=== PATIENT | female | born 1985 | race American Indian/Alaskan Native ===

== ENCOUNTER 2018-05-14 19:44 | Emergency (ER) | payer SELFPAY ==
[2018-05-14 20:09] VITALS: BP 124/70
--- NOTE | 2018-05-14 20:55 | Emergency Department Report ---
<MARIE ALONSO - Last Filed: 05/14/18 22:00> ED Back Pain/Injury HPI - General Chief Complaint: Back Pain/Injury Stated Complaint: BREAST PAIN AND BACK PAIN Time Seen by Provider: 05/14/18 20:46 Source: patient Limitations: No Limitations - History of Present Illness Initial Comments: This is a 32-year-old female here reports that she is probably because she missed her period and has not had a period since January 2018. She is complaining of bilateral nipple pain and denies any redness, swelling or drainage from nipple. She denies any fever or chills. She is also complaining that she is having lower back pain. Denies any abdominal pain, vaginal bleeding or discharge. Patient also states that she had went to a clinic and they did not do a test for her because this she was not on Medicaid and she cannot get Medicaid unless she can prove that she is . Denies any nausea or vomiting. Denies any urinary symptoms. She said this started last night. She is here to be examined. MD Complaint: back pain, other (bilateral breast pain and concern for ) -: Last night Similar Symptoms Previously: No Place: home Radiation: none Severity: moderate Severity scale (0 -10): 7 Quality: aching Consistency: intermittent Improves With: none Worsens With: none Context: unknown Associated Symptoms: denies: confusion, weakness, chest pain, numbness, difficulty walking, cough, difficulty urinating, diaphoresis, incontinence, fever/chills, constipation, headaches, abdominal pain, loss of appetite, malaise , nausea/vomiting, rash, seizure, shortness of breath, syncope Treatments Prior to Arrival: other (none) - Related Data Previous Rx's Medication Instructions Recorded Last Taken Type Nitrofurantoin [place]/M-Cryst 100 mg PO Q12HR 7 Days #14 capsule 05/14/18 Unknown Rx [Macrobid CAP] Vit Calc,Iron,Folic 1 each PO QAM 30 Days #30 tablet 05/14/18 Unknown Rx [ Vitamins] Allergies Allergy/AdvReac Type Severity Reaction Status Date / Time No Known Allergies Allergy Unverified 05/14/18 19:59 ED Review of Systems ROS: Stated complaint: BREAST PAIN AND BACK PAIN Other details as noted in HPI Constitutional: denies: chills, fever Eyes: denies: eye pain, eye discharge ENT: denies: ear pain, throat pain, congestion Respiratory: denies: cough, shortness of breath, SOB with exertion, SOB at rest , stridor, wheezing Cardiovascular: denies: chest pain, palpitations, edema, syncope, paroxysmal nocturnal dyspnea Gastrointestinal: denies: abdominal pain, nausea, vomiting, diarrhea, constipation, hematemesis, hematochezia Genitourinary: abnormal menses. denies: urgency, dysuria, frequency, hematuria , discharge Musculoskeletal: back pain. denies: joint swelling, arthralgia, myalgia Skin: denies: rash, lesions Neurological: denies: headache, weakness, numbness, paresthesias, abnormal gait , vertigo ED Past Medical Hx - Past Medical History Previous Medical History?: No - Surgical History Past Surgical History?: No - Family History Family history: no significant - Social History Smoking Status: Former Smoker Substance Use Type: None, Marijuana - Medications Home Medications: Home Medications Medication Instructions Recorded Confirmed Last Taken Type Nitrofurantoin [place]/M-Cryst 100 mg PO Q12HR 7 Days #14 capsule 05/14/18 Unknown Rx [Macrobid CAP] Vit Calc,Iron,Folic 1 each PO QAM 30 Days #30 tablet 05/14/18 Unknown Rx [ Vitamins] ED Physical Exam - General Limitations: No Limitations General appearance: alert, in no apparent distress - Head Head exam: Present: atraumatic, normocephalic, normal inspection - Eye Eye exam: Present: normal appearance, PERRL, EOMI. Absent: nystagmus Pupils: Present: normal accommodation - ENT ENT exam: Present: normal exam, normal orophraynx, mucous membranes moist - Neck Neck exam: Present: normal inspection, full ROM, other (no C-spine tenderness). Absent: tenderness, lymphadenopathy - Respiratory Respiratory exam: Present: normal lung sounds bilaterally. Absent: respiratory distress, chest wall tenderness - Cardiovascular Cardiovascular Exam: Present: regular rate, normal rhythm, normal heart sounds. Absent: systolic murmur, diastolic murmur - GI/Abdominal GI/Abdominal exam: Present: soft, normal bowel sounds. Absent: distended, tenderness, guarding, rebound, rigid, organomegaly, mass, bruit, pulsatile mass , hernia - Extremities Exam Extremities exam: Present: normal inspection, full ROM, normal capillary refill , other (no clubbing, cyanosis or edema.+2 pulses to all extremities and no neurovascular compromise.). Absent: tenderness, pedal edema, joint swelling, calf tenderness - Back Exam Back exam: Present: normal inspection - Neurological Exam Neurological exam: Present: alert, oriented X3, normal gait, reflexes normal. Absent: motor sensory deficit - Expanded Neurological Exam Expanded Neurological exam: Absent: innattentive, memory loss-remote event, memory loss- recent event, ataxia, receptive aphasia, expressive aphasia, total aphasia, tremor, protecting the airway Patient oriented to: Present: person, place, time Speech: Present: fluid speech Cranial nerves: EOM's Intact: Normal, Gag Reflex: Normal, Tongue Deviation: Normal, Nystagmus: Normal, Facial Sensation: Normal Cerebellar function: Romberg: Normal Upper motor neuron: Pronator Drift: Normal, Sensory Extinction: Normal Sensory exam: Upper Extremity Light Touch: Normal, Upper Extremity Pin Prick: Normal, Upper Extremity Temperature: Normal, UE 2 Point Discrimination: Normal, Lower Extremity Light Touch: Normal, Lower Extremity Pin Prick: Normal, Lower Extremity Temperature: Normal, LE 2 Point Discrimination: Normal Motor strength exam: RUE: 5, LUE: 5, RLE: 5, LLE: 5 Best Eye Response (Kayla): (4) open spontaneously Best Motor Response ([place]): (6) obeys commands Best Verbal Response (Kayla): (5) oriented Kayla Total: 15 - Psychiatric Psychiatric exam: Present: normal affect, normal mood - Skin Skin exam: Present: warm, dry, intact, normal color. Absent: rash ED Course Vital Signs 05/14/18 19:59 Temperature 99 F Pulse Rate 90 Respiratory 20 Rate Blood Pressure 124/70 O2 Sat by Pulse 100 Oximetry - Reevaluation(s) Reevaluation #1: 05/14/18 22:13 Patient is stable. No distress and emergency. She is given Rocephin 1 g IM for urinary tract infection without any adverse reaction. ED Medical Decision Making - Lab Data Lab Results 05/14/18 05/14/18 Range/Units 20:58 21:09 HCG, Qual Positive (Negative) Urine Color Yellow (Yellow) Urine Turbidity Clear (Clear) Urine pH 6.0 (5.0-7.0) Ur Specific [place] 1.025 (1.003-1.030) Urine Protein 30 mg/dl (Negative) mg/dL Urine Glucose (UA) Neg (Negative) mg/dL Urine Ketones Neg (Negative) mg/dL Urine Blood Neg (Negative) Urine Nitrite Pos (Negative) Urine Bilirubin Neg (Negative) Urine Urobilinogen < 2.0 (<2.0) mg/dL Ur Leukocyte Esterase Mod (Negative) Urine WBC (Auto) 30.0 H (0.0-6.0) /HPF Urine RBC (Auto) 9.0 (0.0-6.0) /HPF U Epithel Cells (Auto) 10.0 (0-13.0) /HPF Urine Bacteria (Auto) 4+ (Negative) /HPF Urine Mucus 2+ /HPF Urine culture sent and pending - Medical Decision Making 32-year-old female here concern for because she has had her menstrual cycle since January 2018. She is complaining of lower back pain and bilateral breast pain. Patient is here to be examined. She doesn't have [facility] because she says she needs to activate her Medicaid so she can see [facility] doctor. Patient was screened and examined by myself. Her physical findings are normal without any vertebral tenderness, paraspinal tenderness. Abdominal exam is normal without any tenderness to palpation or CVA tenderness. Breast exam is normal without any erythema, induration, no nipple discharge or skin abnormality. Bilateral breast nontender to palpate and normal examination. Qualitative hCG serum positive and urinalysis with positive nitrite, positive leukocyte esterase, positive white blood cell and positive for plus bacteria. Urine culture sent. I discussed with patient her results and also urinalysis results. She is given Rocephin 1 g IM without any adverse reaction and will be started on Macrobid and vitamin. I discussed that she needs to follow-up with [facility] to call tomorrow to schedule an appointment and she voiced understanding. No need for pelvic exam or ultrasound patient does not have any abdominal pain, no vaginal bleeding or discharge and she is not concerned for STD. No concern for ectopic at present. A/P 1: Positive serum hCG-patient to follow up with [facility] and will be started on vitamin. 2: Bilateral breast pain-breast exam is normal 3: Lower back pain, bilateral-no pain at present. 4: Acute cystitis without hematuria-urine culture sent. Patient given Rocephin 1 g IM in emergency room and will be sent home and Macrobid. Patient educated on , medication, treatment plan, diagnosis, laboratory findings a urinalysis. She voiced understanding. Referral to [facility] I discuss with patient that if she has any vaginal bleeding, abdominal pain or cramping, fever and/or chills and increasing back pain to return to the emergency room [facility] otherwise follow-up with [facility] to call tomorrow to schedule an appointment and she voiced understanding. Patient discharged home in stable condition. Vital signs are stable and she is afebrile. She is nontoxic in appearance and she is not having any pain at present. Discharged home with prescription for Macrobid and vitamin. - Differential Diagnosis , lumbar strain, urinary tract infection, abnormal menstrual cycle Critical care attestation.: If time is entered above; I have spent that time in minutes in the direct care of this critically ill patient, excluding procedure time. ED Disposition Disposition: DC-01 TO HOME OR SELFCARE Is pt being admited?: No Does the pt Need Aspirin: No Condition: Stable Instructions: Vitamins (By mouth), Nitrofurantoin Combination (By mouth), (ED), Urinary Tract Infection in Women (ED), Acute Low Back Pain (ED) Additional Instructions: Follow-up with [facility] as discussed. See referral in discharge instruction paperwork I discuss with patient that if she has any vaginal bleeding, abdominal pain or cramping, fever and/or chills and increasing back pain to return to the emergency room [facility] otherwise follow-up with [facility] to call tomorrow to schedule an appointment and she voiced understanding. Take Macrobid for urinary tract infection Take vitamins for Increasing her fluid intake Prescriptions: Nitrofurantoin [place]/M-Cryst [Macrobid CAP] 100 mg PO Q12HR 7 Days #14 capsule Vit Calc,Iron,Folic [ Vitamins] 1 each PO QAM 30 Days #30 tablet Referrals: SANIA LAMAS [Staff Physician] - 05/18/18 [facility] [Outside] - 05/18/18 Forms: Work/School Release Form(ED) <NIECY العراقي - Last Filed: 05/15/18 00:33> ED Medical Decision Making - Medical Decision Making Patient was seen and evaluated by midlevel. I was available for consultation for the patients entire ED visit. I did not see or examine the patient. I agree with the plan as written above. I am signing this chart administratively.
[2018-05-14 21:18] LABS: Bacteria,Urine 4+ /HPF (Negative); Bilirubin,Urine NEG (Negative); Blood,Urine NEG (Negative); Color,Urine Yellow (Yellow); Mucus,Urine 2+ /HPF; Urobilinogen,Urine < 2.0 mg/dL (<2.0)
[2018-05-14] MEDS ORDERED: ROCEPHIN IM STA (21:59)
[2018-05-14] MEDS ORDERED: XYLOCAINE 1% MPF 5 mL INFILTRATI ONE (21:59)
== END 2018-05-14 22:36 | disposition home or self-care (01) ==
LOC: ED 19:44
DX: S39.012A Strain of muscle, fascia and tendon of lower back, initial encounter (principal); O23.41 Unspecified infection of urinary tract in pregnancy, first trimester; O20.8 Other hemorrhage in early pregnancy; F12.10 Cannabis abuse, uncomplicated; Z3A.00 Weeks of gestation of pregnancy not specified; Z87.891 Personal history of nicotine dependence; X58.XXXA Exposure to other specified factors, initial encounter; Y93.89 Activity, other specified; Y99.8 Other external cause status; Y92.89 Other specified places as the place of occurrence of the external cause
CPT/HCPCS: 36415; 81001; 84703; 87076; 87086; 87186; 96372; 99283; J0696

== ENCOUNTER 2019-05-04 19:06 | Emergency (ER) | payer MEDICAID ==
--- NOTE | 2019-05-04 19:16 | Emergency Department Report ---
Blank Doc - Documentation Documentation: This is a 33-year-old female that presents with right ankle pain s/p fall. De nies any other injuries or pain. This initial assessment/diagnostic orders/clinical plan/treatment(s) is/are subject to change based on patient's health status, clinical progression and re-assessment by fellow clinical providers in the ED. Further treatment and workup at subsequent clinical providers discretion. Patient/guardians urged not to elope from the ED as their condition may be serious if not clinically assessed and managed. Initial orders include: 1- Patient sent to [facility] for further evaluation and treatment 2- xray
[2019-05-04 19:17] VITALS: BP 137/92
--- NOTE | 2019-05-04 19:44 | XRay Report ---
RIGHT ANKLE 3 VIEWS INDICATION / CLINICAL INFORMATION: Fell down stairs today with right ankle pain. COMPARISON: None available. FINDINGS: BONES / JOINT(S): No acute fracture or subluxation. There is a small spur at the insertion of the Ach illes tendon on the calcaneus. SOFT TISSUES: There is mild diffuse soft tissue swelling/soft tissue prominence, more prominent later ally. ADDITIONAL FINDINGS: None. IMPRESSION: No acute osseous abnormality is identified. Signer Name: Luke Meek MD Signed: 05/04/2019 6:40 PM Workstation Name: [id number]
[2019-05-04] MEDS ORDERED: IBUPROFEN PO ONE (20:46)
[2019-05-04] MEDS ORDERED: TYLENOL PO ONE (20:46)
--- NOTE | 2019-05-04 21:53 | Emergency Department Report ---
ED General Adult HPI - General Chief complaint: Extremity Injury, Lower Stated complaint: RIGHT ANKLE INJURY Time Seen by Provider: 05/04/19 19:16 Source: patient Mode of arrival: Wheelchair Limitations: No Limitations - History of Present Illness Initial comments: Patient is a 33-year-old -Citizen Of The [place] female with no past medical history who presents to the ED with complaint of acute onset severely painful and swollen right ankle after she twisted her ankle and fell down the stairs after missing steps on her way down the stairs 4 hours ago. Patient states that she was distracted by her friend when climbing down the stairs, and ended up missing steps and falling down after twisting her right ankle. The patient denies head or neck injury, back pain, hip pain, knee pain, chest pain, dizziness, syncope, seizures, loss of consciousness, numbness and tingling or weakness of the right leg. MD Complaint: right ankle pain and swelling -: Sudden, hour(s) (4), This evening Location: lower extremity (right ankle) Radiation: non-radiation Severity scale (0 -10): 10 Quality: aching, sharp Consistency: constant Improves with: rest Worsens with: movement Associated Symptoms: denies other symptoms. denies: confusion, cough, diaphoresis, fever/chills, headaches, loss of appetite, malaise, nausea /vomiting, shortness of breath, syncope, weakness Treatments Prior to Arrival: none - Related Data Previous Rx's Medication Instructions Recorded Last Taken Type Nitrofurantoin [place]/M-Cryst 100 mg PO Q12HR 7 Days #14 capsule 05/14/18 Unknown Rx [Macrobid CAP] Vit Calc,Iron,Folic 1 each PO QAM 30 Days #30 tablet 05/14/18 Unknown Rx [ Vitamins] Acetaminophen/Codeine [Tylenol 1 tab PO Q6H PRN #12 tab 05/04/19 Unknown Rx /Codeine # 3 tab] Cyclobenzaprine [Flexeril] 10 mg PO TID PRN #21 tablet 05/04/19 Unknown Rx Ibuprofen [Motrin] 800 mg PO Q8HR PRN #24 tablet 05/04/19 Unknown Rx Allergies Allergy/AdvReac Type Severity Reaction Status Date / Time No Known Allergies Allergy Verified 05/04/19 19:14 ED Review of Systems ROS: Stated complaint: RIGHT ANKLE INJURY Other details as noted in HPI Comment: All other systems reviewed and negative Constitutional: denies: chills, fever Eyes: denies: eye pain, eye discharge, vision change ENT: denies: ear pain, throat pain Respiratory: denies: cough, shortness of breath, wheezing Cardiovascular: denies: chest pain, palpitations Endocrine: no symptoms reported Gastrointestinal: denies: abdominal pain, nausea, diarrhea Genitourinary: denies: urgency, dysuria, discharge Musculoskeletal: joint swelling (right ankle), arthralgia, other (right ankle pain and swelling). denies: back pain Skin: denies: rash, lesions Neurological: denies: headache, weakness, paresthesias Psychiatric: denies: anxiety, depression Hematological/Lymphatic: denies: easy bleeding, easy bruising ED Past Medical Hx - Past Medical History Previous Medical History?: Yes Additional medical history: HTN during - Surgical History Past Surgical History?: No - Social History Smoking Status: Never Smoker Substance Use Type: None - Medications Home Medications: Home Medications Medication Instructions Recorded Confirmed Last Taken Type Nitrofurantoin [place]/M-Cryst 100 mg PO Q12HR 7 Days #14 capsule 05/14/18 Unknown Rx [Macrobid CAP] Vit Calc,Iron,Folic 1 each PO QAM 30 Days #30 tablet 05/14/18 Unknown Rx [ Vitamins] Acetaminophen/Codeine [Tylenol 1 tab PO Q6H PRN #12 tab 05/04/19 Unknown Rx /Codeine # 3 tab] Cyclobenzaprine [Flexeril] 10 mg PO TID PRN #21 tablet 05/04/19 Unknown Rx Ibuprofen [Motrin] 800 mg PO Q8HR PRN #24 tablet 05/04/19 Unknown Rx ED Physical Exam - General Limitations: No Limitations General appearance: alert, in no apparent distress - Head Head exam: Present: atraumatic, normocephalic, normal inspection - Eye Eye exam: Present: normal appearance, PERRL, EOMI Pupils: Present: normal accommodation - ENT ENT exam: Present: normal exam, normal orophraynx, mucous membranes moist, TM's normal bilaterally, normal external ear exam - Neck Neck exam: Present: normal inspection, full ROM. Absent: tenderness - Respiratory Respiratory exam: Present: normal lung sounds bilaterally. Absent: respiratory distress, wheezes, chest wall tenderness, accessory muscle use, decreased breath sounds, prolonged expiratory - Cardiovascular Cardiovascular Exam: Present: regular rate, normal rhythm, normal heart sounds. Absent: systolic murmur, diastolic murmur, rubs, gallop - GI/Abdominal GI/Abdominal exam: Present: soft, normal bowel sounds. Absent: tenderness, guarding, rebound, hyperactive bowel sounds, hypoactive bowel sounds, organomegaly - Rectal Rectal exam: Present: deferred - Extremities Exam Extremities exam: Present: normal inspection, tenderness (palpable right ankle tenderness with this limited range of motion due to pain), normal capillary refill, joint swelling (right ankle). Absent: full ROM (due to pain) - Back Exam Back exam: Present: normal inspection, full ROM. Absent: tenderness, CVA tenderness (R), CVA tenderness (L), muscle spasm, paraspinal tenderness, vertebral tenderness - Neurological Exam Neurological exam: Present: alert, oriented X3, CN II-XII intact, normal gait, reflexes normal - Psychiatric Psychiatric exam: Present: normal affect, normal mood - Skin Skin exam: Present: warm, dry, intact, normal color. Absent: rash ED Course Vital Signs 05/04/19 05/04/19 19:16 20:51 Temperature 98 F Pulse Rate 85 Respiratory 18 18 Rate Blood Pressure 137/92 O2 Sat by Pulse 99 Oximetry - Reevaluation(s) Reevaluation #1: 05/04/19 21:56 Patient is alert and oriented 3 and is not in distress with normal vital signs. Patient was treated for pain in the ED and right ankle x-ray shows no acute fractures or subluxation but a soft tissue swelling on the lateral right ankle. The patient's right ankle was splinted with Joo wrap and patient given crutches to dining room helper in ambulation. Patient was discharged home on pain medications and muscle relaxants and advised to follow up with her primary care physician in 5- 7 days for reevaluation or return to the ED immediately if symptoms get worse. ED Medical Decision Making - Radiology Data Radiology results: report reviewed, image reviewed Right ankle x-ray shows no acute fractures or subluxations, but a soft tissues swelling prominent on lateral right ankle - Medical Decision Making Patient is alert and oriented 3 and is not in distress with normal vital signs. Patient was treated for pain in the ED and right ankle x-ray shows no acute fractures or subluxation but a soft tissue swelling on the lateral right ankle. The patient's right ankle was splinted with Joo wrap and patient given crutches to dining room helper in ambulation. Patient was discharged home on pain medications and muscle relaxants and advised to follow up with her primary care physician in 5- 7 days for reevaluation or return to the ED immediately if symptoms get worse. - Differential Diagnosis right ankle fracture; right ankle sprain, right ankle dislocation Critical care attestation.: If time is entered above; I have spent that time in minutes in the direct care of this critically ill patient, excluding procedure time. ED Disposition Clinical Impression: Severe sprain of right ankle Qualifiers: Encounter type: initial encounter Qualified Code(s): S93.401A - Sprain of unspecified ligament of right ankle, initial encounter Muscle strain of right ankle Qualifiers: Encounter type: initial encounter Qualified Code(s): S96.911A - Strain of unspecified muscle and tendon at ankle and foot level, right foot, initial encounter Disposition: TO HOME OR SELFCARE Is pt being admited?: No Does the pt Need Aspirin: No Condition: Stable Instructions: Muscle Strain (ED), Ankle Sprain (ED) Additional Instructions: Take medications with food, drink plenty of fluids and follow up with your primary care physician in 5-7 days for reevaluation. Return to the ED immediately if symptoms get worse. Prescriptions: Cyclobenzaprine [Flexeril] 10 mg PO TID PRN #21 tablet PRN Reason: Muscle Spasm Ibuprofen [Motrin] 800 mg PO Q8HR PRN #24 tablet PRN Reason: Pain , Severe (7-10) Acetaminophen/Codeine [Tylenol /Codeine # 3 tab] 1 tab PO Q6H PRN #12 tab PRN Reason: Pain , Severe (7-10) Referrals: [facility] [Outside] - 3-5 Days Forms: Work/School Release Form(ED) Time of Disposition: 21:51 Print Language: MONEGASQUE
== END 2019-05-04 22:26 | disposition home or self-care (01) ==
LOC: ED 19:06
DX: S96.911A Strain of unspecified muscle and tendon at ankle and foot level, right foot, initial encounter (principal); Z79.899 Other long term (current) drug therapy; W10.9XXA Fall (on) (from) unspecified stairs and steps, initial encounter; Y93.89 Activity, other specified; Y92.488 Other paved roadways as the place of occurrence of the external cause; Y99.8 Other external cause status
CPT/HCPCS: 99284

== ENCOUNTER 2021-08-07 20:44 | Emergency (ER) | payer MEDICAID ==
[2021-08-07] MEDS ORDERED: MORPHINE 4 MG/1 ML INJ IV ONE (22:40)
[2021-08-07] MEDS ORDERED: FAMOTIDINE 20 MG/2 ML INJ IV ONE (22:40)
[2021-08-07 23:23] LABS: Basophils # (Auto) 0.1 K/mm3 (0.0-0.1); Basophils % (Auto) 0.6 % (0.0-1.8); Eosinophils % (Auto) 0.2 % (0.0-4.3); Hematocrit 32.2 % (30.3-42.9); Hemoglobin 10.4 gm/dl (10.1-14.3); Lymphocytes # (Auto) 1.7 K/mm3 (1.2-5.4); Lymphocytes % (Auto) 19.9 % (13.4-35.0); Mean Corpuscular HGB Conc 32 % (30-34); Mean Corpuscular Volume 80 fl (79-97); Monocytes # (Auto) 0.4 K/mm3 (0.0-0.8); Monocytes % (Auto) 4.7 % (0.0-7.3); Platelet Count 344 K/mm3 (140-440); Red Blood Count 4.01 M/mm3 (3.65-5.03); Red Cell Distribution Width 16.2 % (13.2-15.2)
[2021-08-07 23:32] LABS: Bilirubin,Urine NEG (Negative); Blood,Urine NEG (Negative); Color,Urine Yellow (Yellow); Mucus,Urine 1+ /HPF
[2021-08-07 23:35] LABS: Alanine Aminotransferase 435 units/L (7-56); Albumin 4.3 g/dL (3.9-5); BUN/Creatinine Ratio 18; Blood Urea Nitrogen 14 mg/dL (7-17); Calcium 9.5 mg/dL (8.4-10.2); Hemolysis Index 3
--- NOTE | 2021-08-08 00:12 | Emergency Department Report ---
ED Abdominal Pain HPI - General Chief Complaint: Abdominal Pain Stated Complaint: ABDOMINAL PAIN Source: patient Mode of arrival: Ambulatory Limitations: No Limitations - History of Present Illness Initial Comments: Patient is a A0 36-year-old -[place] female with no past medical history presents to the ED with complaint of acute onset persistent severe right upper quadrant pain for the last 2 days, worse in the last 8 hours. Patient states that she has not been able to eat anything because of worsening pain in the right upper quadrant. Patient denies fever, chills, nausea, vomiting, chest pain or shortness of breath, dizziness, syncope, dysuria, urinary frequency and urgency, cough, sore throat, hematuria, hematemesis, vaginal bleeding or vaginal discharge, traumatic injury or hemoptysis, fever and chills. MD Complaint: abdominal pain (Right upper quadrant pain) -: Sudden, days(s) (2) Location: RUQ, epigastric Radiation: none Migration to: no migration Severity: severe Severity scale (0 -10): 8 Quality: aching, sharp Consistency: constant Improves With: nothing Worsens With: eating, movement Associated Symptoms: denies other symptoms, anorexia. denies: nausea, vomiting, diarrhea, fever, chills, constipation, dysuria, hematemesis, hematochezia, melena, hematuria, syncope - Related Data LMP Date: 07/30/21 Previous Rx's Medication Instructions Recorded Last Taken Type Nitrofurantoin [place]/M-Cryst 100 mg PO Q12HR 7 Days #14 capsule 05/14/18 Unknown Rx [Macrobid CAP] Vit Calc,Iron,Folic 1 each PO QAM 30 Days #30 tablet 05/14/18 Unknown Rx [ Vitamins] Acetaminophen/Codeine [Tylenol 1 tab PO Q6H PRN #12 tab 05/04/19 Unknown Rx /Codeine # 3 tab] Cyclobenzaprine [Flexeril] 10 mg PO TID PRN #21 tablet 05/04/19 Unknown Rx Ibuprofen [Motrin] 800 mg PO Q8HR PRN #24 tablet 05/04/19 Unknown Rx Dicyclomine [Bentyl] 20 mg PO Q6H PRN #30 tablet 08/08/21 Unknown Rx Famotidine [Pepcid] 20 mg PO BID #60 tablet 08/08/21 Unknown Rx Ondansetron [Zofran Odt] 4 mg PO Q6HR PRN #15 tab.rapdis 08/08/21 Unknown Rx traMADoL [Ultram] 50 mg PO Q6HR PRN #12 tablet 08/08/21 Unknown Rx Allergies Allergy/AdvReac Type Severity Reaction Status Date / Time No Known Allergies Allergy Verified 05/04/19 19:14 ED Review of Systems ROS: Stated complaint: ABDOMINAL PAIN Other details as noted in HPI Constitutional: denies: chills, fever Eyes: denies: eye pain, eye discharge, vision change ENT: denies: ear pain, throat pain Respiratory: denies: cough, shortness of breath, wheezing Cardiovascular: denies: chest pain, palpitations Endocrine: no symptoms reported Gastrointestinal: abdominal pain (Right upper quadrant pain). denies: nausea, vomiting, diarrhea Genitourinary: denies: urgency, dysuria, discharge Musculoskeletal: denies: back pain, joint swelling, arthralgia Skin: denies: rash, lesions Neurological: denies: headache, weakness, paresthesias Psychiatric: denies: anxiety, depression Hematological/Lymphatic: denies: easy bleeding, easy bruising ED Past Medical Hx - Past Medical History Previous Medical History?: Yes Additional medical history: HTN during . TL - Surgical History Past Surgical History?: Yes Additional Surgical History: TL - Social History Smoking Status: Never Smoker Substance Use Type: None - Medications Home Medications: Home Medications Medication Instructions Recorded Confirmed Last Taken Type Nitrofurantoin [place]/M-Cryst 100 mg PO Q12HR 7 Days #14 capsule 05/14/18 Unknown Rx [Macrobid CAP] Vit Calc,Iron,Folic 1 each PO QAM 30 Days #30 tablet 05/14/18 Unknown Rx [ Vitamins] Acetaminophen/Codeine [Tylenol 1 tab PO Q6H PRN #12 tab 05/04/19 Unknown Rx /Codeine # 3 tab] Cyclobenzaprine [Flexeril] 10 mg PO TID PRN #21 tablet 05/04/19 Unknown Rx Ibuprofen [Motrin] 800 mg PO Q8HR PRN #24 tablet 05/04/19 Unknown Rx Dicyclomine [Bentyl] 20 mg PO Q6H PRN #30 tablet 08/08/21 Unknown Rx Famotidine [Pepcid] 20 mg PO BID #60 tablet 08/08/21 Unknown Rx Ondansetron [Zofran Odt] 4 mg PO Q6HR PRN #15 tab.rapdis 08/08/21 Unknown Rx traMADoL [Ultram] 50 mg PO Q6HR PRN #12 tablet 08/08/21 Unknown Rx ED Physical Exam - General Limitations: No Limitations General appearance: alert, in no apparent distress - Head Head exam: Present: atraumatic, normocephalic, normal inspection - Eye Eye exam: Present: normal appearance, PERRL, EOMI Pupils: Present: normal accommodation - ENT ENT exam: Present: normal exam, normal orophraynx, mucous membranes moist, TM's normal bilaterally, normal external ear exam - Neck Neck exam: Present: normal inspection, full ROM - Respiratory Respiratory exam: Present: normal lung sounds bilaterally. Absent: respiratory distress, wheezes, rales, rhonchi, stridor, chest wall tenderness, accessory muscle use, decreased breath sounds, prolonged expiratory, other - Cardiovascular Cardiovascular Exam: Present: regular rate, normal rhythm, normal heart sounds. Absent: systolic murmur, diastolic murmur, rubs, gallop - GI/Abdominal GI/Abdominal exam: Present: soft, tenderness (Palpable right upper quadrant tenderness with a positive Mcginnis sign), normal bowel sounds. Absent: guarding, rebound, hyperactive bowel sounds, hypoactive bowel sounds, mass - Extremities Exam Extremities exam: Present: normal inspection, full ROM, normal capillary refill - Back Exam Back exam: Present: normal inspection, full ROM. Absent: tenderness, CVA tenderness (R), CVA tenderness (L), muscle spasm, paraspinal tenderness, vertebral tenderness - Neurological Exam Neurological exam: Present: alert, oriented X3, CN II-XII intact, normal gait, reflexes normal - Psychiatric Psychiatric exam: Present: normal affect, normal mood - Skin Skin exam: Present: warm, dry, intact, normal color. Absent: rash ED Course Vital Signs 08/07/21 21:31 Temperature 98.5 F Pulse Rate 68 Respiratory 18 Rate Blood Pressure 151/81 O2 Sat by Pulse 99 Oximetry ED Medical Decision Making - Lab Data Result diagrams: 08/07/21 23:00 08/07/21 23:00 - Radiology Data Radiology results: report reviewed, image reviewed [facility] [address] [place] [address] Ultrasound Report Signed Patient: ELIJAH SELBY MR#: [id number] : 1985 Acct:[id number] Age/Sex: 36 / F ADM Date: 08/07/21 Loc: ED Attending Dr: Ordering Physician: HERMILA CARNEY Date of Service: 08/07/21 Procedure(s): US abdomen limited Accession Number(s): [id number] cc: HERMILA CARNEY ULTRASOUND ABDOMEN, LIMITED (RIGHT UPPER QUADRANT) INDICATION: Right upper quadrant abdominal Pain. COMPARISON: None available. FINDINGS: Pancreas: Not well visualized from overlying bowel gas. Liver: Normal. Gallbladder: The gallbladder appears packed with shadowing gallstones.. No discrete gallbladder wall thickening identified Bile ducts: Normal. Common Bile Duct measures 4 mm. Free fluid: None. Additional Findings: None. IMPRESSION: Severe cholelithiasis, as above. Signer Name: Sarbjit Gonzalez MD Signed: 08/08/2021 12:37 AM Workstation Name: [id number] Transcribed By: BC Dictated By: Sarbjit Gonzalez MD Electronically Authenticated By: Sarbjit oGnzalez MD Signed Date/Time: 08/08/2136 DD/ TD/TT: - Medical Decision Making This is a A0 36-year-old -[place] female with no past medical history presents to the ED with complaint of acute onset persistent severe right upper quadrant pain for the last 2 days, worse in the last 8 hours. Patient states that she has not been able to eat anything because of worsening pain in t he right upper quadrant. In the ED, patient is alert and oriented x3 and is not in any distress. Patient however appears to be in pain. Patient was treated for pain in the ED and also given antiemetics as well as antacids. Patient was also given normal saline 1 L IV bolus x1. Gallbladder ultrasound showed the gallbladder which appears packed with shadowing gallstones.. No discrete gallbladder wall thickening identified, the bile ducts are normal. Common Bile Duct measures 4 mm. Lab test results were reviewed and are all nonactionable except for AST of 758 and ALT of 435, and alk phos of 233. The rest the lab test results are nonactionable including urinalysis. On reevaluation, patient's pain is well controlled medication. Patient will discharge home on pain medications and antacids, and was given a referral to the general surgeon on- call Dr. rBanch for follow-up. Patient was advised to contact Dr. Branch's office first thing in the morning Wednesday September 08, 2021 to schedule a follow-up appointment. Patient was advised return to the ED immediately if symptoms get worse. - Differential Diagnosis Cholelithiasis; cholecystitis; GERD; gastritis; gastroenteritis; UTI Critical care attestation.: If time is entered above; I have spent that time in minutes in the direct care of this critically ill patient, excluding procedure time. ED Disposition Clinical Impression: Acute abdominal pain in right upper quadrant, Cholelithiasis without cholecystitis Disposition: HOME / SELF CARE / HOMELESS Is pt being admited?: No Does the pt Need Aspirin: No Condition: Stable Instructions: Abdominal Pain (ED), Cholelithiasis, [id number], Abdominal Pain , Adult, [id number], Gallbladder Eating Plan Additional Instructions: All lab test results were reviewed and are all nonactionable except for liver enzymes that are elevated secondary to gallstones in your gallbladder. Therefore take medications as needed for pain, drink plenty of fluids, take the antacids to minimize your pain. Follow-up with the general surgeon on-call Dr. Branch in 2 to 3 days for reevaluation. Contact Dr. Branch's office first thing this morning 2020 to schedule a follow-up appointment for further evaluation. Return to the ED immediately if symptoms get worse. Prescriptions: Dicyclomine [Bentyl] 20 mg PO Q6H PRN #30 tablet PRN Reason: Abdominal pain Famotidine [Pepcid] 20 mg PO BID #60 tablet traMADoL [Ultram] 50 mg PO Q6HR PRN #12 tablet PRN Reason: Pain Ondansetron [Zofran Odt] 4 mg PO Q6HR PRN #15 tab.rapdis PRN Reason: Nausea Referrals: JEREMIE BRANCH MD [Staff Physician] - 2-3 Days Forms: Work/School Release Form(ED) Time of Disposition: 01:15 Print Language: BHUTANESE
--- NOTE | 2021-08-08 00:41 | Ultrasound Report ---
ULTRASOUND ABDOMEN, LIMITED (RIGHT UPPER QUADRANT) INDICATION: Right upper quadrant abdominal Pain. COMPARISON: None available. FINDINGS: Pancreas: Not well visualized from overlying bowel gas. Liver: Normal. Gallbladder: The gallbladder appears packed with shadowing gallstones.. No discrete gallbladder wall thickening identified Bile ducts: Normal. Common Bile Duct measures 4 mm. Free fluid: None. Additional Findings: None. IMPRESSION: Severe cholelithiasis, as above. Signer Name: Sarbjit Gonzalez MD Signed: 08/08/2021 12:37 AM Workstation Name: [id number]
[2021-08-08 02:17] VITALS: BP 169/93
== END 2021-08-08 02:17 | disposition home or self-care (01) ==
LOC: ED 20:44
DX: K80.20 Calculus of gallbladder without cholecystitis without obstruction (principal); Z98.890 Other specified postprocedural states
CPT/HCPCS: 36415; 76705; 80053; 81001; 83690; 84703; 85025; 96374; 96375; 99284; J2270

== ENCOUNTER 2021-09-19 17:12 | Emergency (ER) | payer MEDICAID ==
[2021-09-19 17:20] VITALS: BP 189/88
--- NOTE | 2021-09-19 18:06 | Emergency Department Report ---
Chief Complaint: Urogenital-Female Stated Complaint: VAGINAL CHECK - HPI History of Present Illness: The patient was evaluated in the emergency department for symptoms described in the history of present illness. He/she was evaluated in the context of the global COVID-19 pandemic, which necessitated consideration that the patient might be at risk for infection with the virus that causes COVID-19. Institutional protocols and algorithms that pertain to the evaluation of patients at risk for COVID-19 are in a state of rapid change based on information released by regulatory bodies including the CDC and federal and state organizations. These policies and algorithms were followed during the patient's care in the emergency department. Please note that these policies, procedures and recommendations changed on a rapid basis. 36-year-old -[place] female presents to the emergency room wanting a vaginal check. Patient states been having irritation for 2 days denies any vaginal discharge no concern for no concern for STD. - Exam Vital Signs: Vital Signs 09/19/21 17:19 Temperature 98.3 F Pulse Rate 77 Respiratory 16 Rate Blood Pressure 189/88 [Left] O2 Sat by Pulse 100 Oximetry Physical Exam: General: Awake, appropriately interactive, no acute distress. Neck: Supple. Full range of motion intact. Cardiovascular: Normal peripheral perfusion. Pulmonary: No respiratory distress. Patient is speaking normally without use of accessory muscles. Skin: No apparent rashes or lesions. Neurological: No facial asymmetry. Speech is clear. Follows commands. Patient is alert and oriented. Musculoskeletal: Full range of motion, no crepitus. No tenderness to palpate nonerythematous no edema test appreciated. Able to bear weight and ambulate without difficulty. Distal neurovascular and motor/sensory function is intact. Psych: Cooperative. Appropriate mood and affect. MSE screening note: Focused history and physical exam performed. Due to findings the following was ordered: ED Medical Decision Making - Medical Decision Making 36-year-old -[place] female presents to the emergency room wanting a vaginal check. Patient states been having irritation for 2 days denies any vaginal discharge no concern for no concern for STD. Patient was referred to [facility] and primary care. ED Disposition for MSE Disposition: HOME / SELF CARE / HOMELESS Is pt being admited?: No Does the pt Need Aspirin: No Condition: Stable Additional Instructions: Referral to butting saw operator. Referrals: [facility] [Provider Group] - 3-5 Days [facility] [Provider Group] - 3-5 Days NEVILLE ROUSSEAU MD [Staff Physician] - 3-5 Days HUY GARG MD [Staff Physician] - 3-5 Days Forms: Work/School Release Form(ED)
== END 2021-09-19 18:11 | disposition home or self-care (01) ==
LOC: ED 17:12
DX: Z01.419 Encounter for gynecological examination (general) (routine) without abnormal findings (principal)
CPT/HCPCS: 99281